=== PATIENT | female | born 1990 | race Caucasian/White ===

== ENCOUNTER 2017-02-01 13:36 | Emergency (ER) | payer OTHER ==
[~2017-02-01] VITALS: Ht 147.3 cm; Wt 46.3 kg
[2017-02-01 13:42] VITALS: Ht 147.3 cm; Wt 46.3 kg
[2017-02-01] MEDS ORDERED: AZIT250T94 PO (14:13)
[2017-02-01] MEDS ORDERED: ALBU8.5H3 INH (14:13)
[2017-02-01] MEDS ORDERED: PRED20TA PO (14:13)
--- NOTE | 2017-02-01 14:16 | ERD ---
ER Documentation Chief Complaint Chief Complaint pt bib self with c/o cough since yesterday HPI This a 26-year-old female here for cough. She has had a cough for 5 days green productive sputum. Subjective fever but none today. No wheezing shortness of breath and dyspnea on exertion no nausea vomiting diarrhea no abdominal pain no runny nose or congestion ROS All systems reviewed and are negative except as per history of present illness. Medications Home Meds Active Scripts Albuterol Sulfate* (Proair HFA*) 8.5 Gm Hfa.aer.ad, 2 PUFF INH Q4, #1 INHALER Prov:MAEGAN WANS Hiro DO 02/01/17 Prednisone* (Prednisone*) 20 Mg Tab, 40 MG PO DAILY for 3 Days, TAB Prov:MAEGAN WANS Hiro DO 02/01/17 Azithromycin* (Zithromax*) 250 Mg Tablet, 250 MG PO .ZPACK DIRECTED, #6 TAB TAKE 500 MG (2 TABS) THE FIRST DAY THEN 250 MG (1 TAB) DAYS 2-5 Prov:CAM WAN DO 02/01/17 Allergies Allergies: Coded Allergies: No Known Allergy (Unverified , 02/01/17) FmHx Family History: No coronary disease Physical Exam Vitals Vital Signs Date Time Temp Pulse Resp B/P Pulse Ox O2 Delivery O2 Flow Rate FiO2 02/01/17 13:42 98.9 82 16 139/73 98 Physical Exam Const: Well-developed, well-nourished Head: Atraumatic, normocephalic Eyes: Normal Conjunctiva, PERRLA, EOMI, normal sclera, no nystagmus ENT: Normal External Ears, Nose and Mouth, moist mucus membranes. Neck: Full range of motion. No meningismus, no lymphadenopathy. Resp: Clear to auscultation bilaterally, no wheezing, rhonchi, rales Cardio: Regular rate and rhythm, no murmurs, S1 S2 present Abd: Soft, non tender x 4, non distended. Normal bowel sounds, no guarding or rebound, no pulsitile abdominal masses or bruits Skin: No petechiae or rashes, no ecchymosis , no maculopapular rash Back: No midline or flank tenderness Ext: No cyanosis, or edema, FROM x 4, normal inspection, neurovascularly intact x 4 Neur: Awake and alert, STR 5/5 x 4, sensation intact x 4, no focal findings, cerebellum intact Psych: Normal Mood and Affect Procedures/MDM Patient has bronchitis we will treat with Z-Frank prednisone and albuterol Departure Diagnosis: Primary Impression: Bronchitis Condition: Stable Patient Instructions: Bronchitis, Antiobiotic Treatment (Adult) CAM AWN DO Feb 01, 2017 14:16
== END 2017-02-01 14:50 | disposition home or self-care (01) ==
LOC: FTE 13:36
DX: J20.9 Acute bronchitis, unspecified (principal)
CPT/HCPCS: 99284